=== PATIENT | female | born 1960 | race Caucasian/White ===

== ENCOUNTER → 2016-07-14 | Outpatient (CLI) | payer BC ==
[~2016-07-14] MED LIST: AUGMENTIN 500-500 MG PO; BRILINTA90 MG PO; COQ-1030 MG PO; IBUPROFEN600 MG PO; LIPITOR80 MG PO; LOPRESSOR 25 MG25 MG PO; LOW DOSE ASPIRI81 MG PO; MIRALAX PACK 171 PKT PO; NEURONTIN 100100 MG PO; NITROSTAT0.4 MG SL; ROBAXIN500 MG PO; TYLENOL 325MG325 MG PO; ZANAFLEX4 M1 PO; ZESTRIL2.5 MG PO
== END ==
LOC: CT 17:25
DX: R10.2 Pelvic and perineal pain (principal); R19.00 Intra-abdominal and pelvic swelling, mass and lump, unspecified site; K57.32 Diverticulitis of large intestine without perforation or abscess without bleeding
CPT/HCPCS: J7050; Q9962

== ENCOUNTER 2016-07-15 12:55 | Observation (INO) | payer BC ==
[~2016-07-15] VITALS: Ht 160 cm; Wt 81.2 kg
[2016-07-15 15:54] LABS: HEMOGLOBIN 12.3 gm/dl (12.3-15.3); RED BLOOD COUNT 4.54 M/UL (4.00-5.10); WHITE BLOOD COUNT 9.3 K/UL (4.5-11.0)
[2016-07-15 16:18] LABS: BUN/CREATININE RATIO 18 (0-10)
[2016-07-17] MEDS ORDERED: AUGMENTIN 500-500 MG PO (19:49)
[2016-08-20] MEDS ORDERED: LIPITOR80 MG PO (07:34)
[2016-08-20] MEDS ORDERED: COQ-1030 MG PO (07:34)
[2016-11-19] MEDS ORDERED: IBUPROFEN600 MG PO (10:25)
[2016-11-19] MEDS ORDERED: NEURONTIN 100100 MG PO (10:26)
[2016-11-19] MEDS ORDERED: ROBAXIN500 MG PO (10:26)
[2016-11-19] MEDS ORDERED: ZANAFLEX4 M1 PO (10:27)
[2016-11-19] MEDS ORDERED: LOW DOSE ASPIRI81 MG PO (11:11)
[2016-11-19] MEDS ORDERED: ZESTRIL2.5 MG PO (11:14)
[2016-11-19] MEDS ORDERED: LOPRESSOR 25 MG25 MG PO (11:16)
[2016-11-19] MEDS ORDERED: MIRALAX PACK 171 PKT PO (11:17)
[2016-11-19] MEDS ORDERED: BRILINTA90 MG PO (11:17)
[2016-11-19] MEDS ORDERED: TYLENOL 325MG325 MG PO (11:18)
[2016-11-19] MEDS ORDERED: NITROSTAT0.4 MG SL (11:20)
== END 2016-07-17 20:08 | disposition home or self-care (01) ==
LOC: M/S 14:58
PROVIDERS: ADMIT Obstetrics & Gynecology
DX: K57.92 Diverticulitis of intestine, part unspecified, without perforation or abscess without bleeding (principal); E78.00 Pure hypercholesterolemia, unspecified; E66.9 Obesity, unspecified; Z79.899 Other long term (current) drug therapy
CPT/HCPCS: 36415; 80053; 85025; G0378; G0379; J1885; J7120

== ENCOUNTER → 2016-07-27 | Outpatient (CLI) | payer BC | LOC: LAB 07:41 | DX: K57.32 Diverticulitis of large intestine without perforation or abscess without bleeding (principal) | CPT/HCPCS: 36415; 82565; 84520 ==

== ENCOUNTER → 2016-07-28 | Outpatient (CLI) | payer BC | LOC: CT 09:30 | DX: K57.32 Diverticulitis of large intestine without perforation or abscess without bleeding (principal) | CPT/HCPCS: J7050; Q9962 ==

== ENCOUNTER → 2016-08-20 | Day surgery (SDC) | payer BC ==
[~2016-08-20] VITALS: Ht 160 cm; Wt 80.7 kg
== END | disposition home or self-care (01) ==
LOC: OR 06:34
PROVIDERS: Internal Medicine Gastroenterology
PROC: 0DBN8ZX Excision of Sigmoid Colon, Via Natural or Artificial Opening Endoscopic, Diagnostic (ICD-10-PCS; principal; 2016-08-20 07:30)
DX: K52.9 Noninfective gastroenteritis and colitis, unspecified (principal); K56.69 Other intestinal obstruction; K57.30 Diverticulosis of large intestine without perforation or abscess without bleeding; K64.0 First degree hemorrhoids; E66.9 Obesity, unspecified; M19.90 Unspecified osteoarthritis, unspecified site; Z87.19 Personal history of other diseases of the digestive system; Z90.49 Acquired absence of other specified parts of digestive tract; Z90.710 Acquired absence of both cervix and uterus; Z87.442 Personal history of urinary calculi; Z79.899 Other long term (current) drug therapy
CPT/HCPCS: J7030

== ENCOUNTER → 2021-04-23 | Outpatient (CLI) | payer OTHER | LOC: KOH-I 10:39 | DX: M54.50 Low back pain, unspecified (principal); M25.552 Pain in left hip | CPT/HCPCS: 72100; 73522 ==

== ENCOUNTER → 2021-05-09 | Outpatient (CLI) | payer OTHER | LOC: KOH-I 13:21 | DX: R53.1 Weakness (principal); M51.26 Other intervertebral disc displacement, lumbar region; M47.9 Spondylosis, unspecified | CPT/HCPCS: 72148 ==

== ENCOUNTER → 2021-07-07 | Outpatient (CLI) | payer OTHER | LOC: MAMO 05-27 09:00 → EXRD 05-27 10:00 → MAMO 06-09 11:00 → EXRD 06-09 11:30 → MAMO 06-24 09:30 → EXRD 06-24 10:00 → MAMO 07-04 10:00 | DX: Z12.31 Encounter for screening mammogram for malignant neoplasm of breast (principal); Z78.0 Asymptomatic menopausal state | CPT/HCPCS: 77063; 77067; 77080 ==